=== PATIENT | male | born 1955 | race Caucasian/White ===

== ENCOUNTER → 2019-04-05 09:45 | Outpatient (CLI) | payer OTHER, SELFPAY ==
--- NOTE | 2019-04-05 | DI.MRI.S_ITS ---
PROCEDURE: MR CERVICAL SPINE WO CON INDICATIONS: RADICULAPATHY TECHNIQUE: Noncontrast sagittal T1 spin echo and T2 fast spin echo, sagittal STIR, foraminal oblique sagittal T2 fast spin echo, and axial gradient echo or T2 fast spin echo through the cervical spine. COMPARISON: None. FINDINGS: Image quality: Excellent. Alignment and Curvature: There is normal bony alignment. Bone Marrow: Marrow demonstrates normal overall signal. Mild reactive signal within the endplates adjacent to the C4-C5, C5-C6, and C6-C7 intervertebral discs are at Spinal Cord: Visualized spinal cord has normal size and signal. No cerebellar tonsillar herniation. Paraspinous Soft Tissues: No paravertebral masses. Prevertebral soft tissues are normal in thickness. C2-C3: Congenital canal stenosis. Moderate disc desiccation. Mild diffuse disc bulge. Mild canal stenosis. No foraminal stenosis. C3-C4: Congenital canal stenosis. Mild disc desiccation. Mild diffuse disc bulge. Mild facet and uncovertebral hypertrophy. Mild canal stenosis. Mild bilateral foraminal stenosis. C4-C5: Congenital canal stenosis. Moderate disc desiccation. Mild diffuse disc bulge. Mild facet and uncovertebral hypertrophy bilaterally. Moderate to severe canal stenosis. Mild cord flattening. Mild bilateral foraminal stenosis. C5-C6: Congenital canal stenosis. Moderate disc height loss and desiccation. Mild diffuse disc bulge. Mild facet and uncovertebral hypertrophy bilaterally. Moderate to severe canal stenosis. Minimal cord flattening. Mild left and moderate right foraminal stenosis. C6-C7: Mild disc height loss and desiccation. Mild diffuse disc bulge. Mild facet and uncovertebral hypertrophy bilaterally. Mild canal stenosis. Mild left and moderate right foraminal stenosis. C7-T1: Mild disc desiccation. No significant canal, nor foraminal stenosis. IMPRESSION: 1. Multilevel degenerative disc and facet disease, as well as uncovertebral hypertrophy superimposed on diffuse congenital canal stenosis. 2. Multilevel canal stenoses, worst at C4-C5 and C5-C6, where there is minimal cord flattening present. 3. Multilevel foraminal stenoses, worst at C5-C6 and C6-C7 on the right, where there are moderate foraminal stenosis present. Dictated by: Grayson Danielle M.D. on 04/06/2019 at 16:06 Approved by: Grayson Danielle M.D. on 04/06/2019 at 16:15
--- NOTE | 2019-04-05 | DI.MRI.S_ITS ---
PROCEDURE: MR SHOULDER RT WO CON INDICATIONS: RADICULAPATHY TECHNIQUE: Noncontrast oblique coronal T2 fast spin echo with fat saturation, oblique sagittal T1 spin echo and T2 fast spin echo with fat saturation, axial T1 spin echo and T2 fast spin echo with fat saturation through the shoulder. COMPARISON: None. FINDINGS: Image quality: Excellent. Rotator cuff: Severe supraspinatus tendinopathy and thickening with interstitial tearing, and possible full-thickness slitlike perforation seen on image 9/7. No retracted or large full thickness defect is identified. Concomitant partial-thickness articular and bursal side tear noted. Infraspinatus tendinopathy with low-grade bursal and articular surface fraying. Teres minor appears intact. Marked subscapularis thickening and tendinopathy, with interstitial tearing and articular and bursal surface fraying. No definite full-thickness defect is seen. No atrophy of the rotator cuff muscles. Bones and bursae: No bone marrow contusions or fractures. Severe hypertrophic acromioclavicular joint degeneration. Glenohumeral degeneration also noted. There is a joint effusion. Acromion demonstrates conventional anatomy, without an os acromiale. Moderate subacromial-subdeltoid bursitis. Capsule and soft tissues: Posterior labral tear is seen with small associated 1 mm para labral cyst on image 15 series 6. There is also circumferential blunting of the remaining labrum which is probably chronic/degenerative. Posterior subluxation of the humeral head relative to the glenoid in keeping with microinstability Long head of the biceps tendon intact. The rotator interval appears normal, without fibrosis. Coracohumeral ligament intact. IMPRESSION: Severe supraspinatus tendinopathy and thickening with interstitial tearing, and full-thickness slitlike pinpoint perforation however no retracted or large full thickness defect. Concomitant partial-thickness articular and bursal sided tear. Infraspinatus tendinopathy with low-grade bursal and articular surface fraying Marked subscapularis thickening and tendinopathy with interstitial tearing, low-grade articular and bursal surface fraying Joint effusion Moderate subacromial-subdeltoid bursitis Posterior labral tear, with associated posterior subluxation of the humeral head relative to the glenoid in keeping with microinstability Dictated by: Gorge Neumann M.D. on 04/06/2019 at 13:37 Approved by: Gorge Neumann M.D. on 04/06/2019 at 13:46
== END ==
PROVIDERS: PCP Family Medicine; Visit Provider Family Medicine
DX: M50.11 Cervical disc disorder with radiculopathy, high cervical region; M48.02 Spinal stenosis, cervical region; M75.111 Incomplete rotator cuff tear or rupture of right shoulder, not specified as traumatic; S43.491A Other sprain of right shoulder joint, initial encounter; M25.511 Pain in right shoulder; M19.011 Primary osteoarthritis, right shoulder; M25.411 Effusion, right shoulder; M75.51 Bursitis of right shoulder
CPT/HCPCS: 72141; 73221

== ENCOUNTER → 2022-03-20 14:10 | Outpatient (CLI) | payer MEDICARE, OTHER, SELFPAY ==
[2022-03-20 15:50] LABS: COVID19 -Nasal RAPID Negative (Negative)
== END ==
PROVIDERS: PCP Family Medicine; Visit Provider Surgery
DX: Z01.812 Encounter for preprocedural laboratory examination (principal); Z20.822 Contact with and (suspected) exposure to COVID-19
CPT/HCPCS: 87635; C9803

== ENCOUNTER 2022-03-21 11:52 | Day surgery (SDC) | payer MEDICARE, OTHER, SELFPAY ==
[2022-03-21 12:21] VITALS: BMI 27.6
[2022-03-21 12:27] VITALS: BP 107/75; PULSE 76; RESP 16; TEMP 36.9; O2SAT 98
[2022-03-21] MEDS: LACTATED RINGERS 1,000 ML 42 ML IV (12:33)
--- NOTE | 2022-03-21 12:43 | PM.HP.1 ---
History of Present Illness History of Present Illness Date Patient Seen: 03/21/22 Chief complaint: EGD W/POSS BX Narrative: Dysphagia and vomiting Patient History Family & Social History Social History: household members spouse Tobacco & Substance use: Smoking Status Never smoker alcohol intake never Substance Use Type does not use Meds Home Medications and Allergies Home Medications Medication Instructions Recorded Confirmed Type atorvastatin 80 mg tablet 20 mg PO DAILY 03/21/22 03/21/22 History empagliflozin 25 mg tablet PO DAILY 03/21/22 History (Jardiance) finasteride 5 mg tablet 5 mg PO DAILY 03/21/22 03/21/22 History gabapentin 600 mg tablet 600 mg PO DAILY 03/21/22 03/21/22 History insulin glargine 100 unit/mL (3 45 unit SUBCUT DAILY 03/21/22 03/21/22 History mL) subcutaneous pen (Lantus Solostar U-100 Insulin) lisinopril 10 mg tablet 5 mg PO DAILY 03/21/22 03/21/22 History metformin 500 mg tablet,extended 850 mg PO BID 03/21/22 03/21/22 History release 24 hr Allergies Allergy/AdvReac Type Severity Reaction Status Date / Time No Known Drug Allergies Allergy Verified 03/21/22 12:04 Exam Vital Signs (past 8 hours): - 03/21/22 12:27 Temperature 98.4 F Pulse Rate 76 Respiratory Rate 16 Blood Pressure 107/75 Pulse Oximetry 98 Oxygen Delivery Method Room Air Oxygen Delivery Method Room Air Narrative Exam Narrative: Oropharynx free of lesions Chest clear to auscultation percussion Cardiac exam reveals no S3 or murmur Assessment & Plan Assessment & Plan narrative: Nausea vomiting while eating at times with some degree of suprasternal notch dysphagia. Rule out mechanical lesion. Risks benefits alternatives been explained for EGD Time Spent With Patient Critical Care time: I spent a total of [] minutes of critical care time on this patient's care today; this time is exclusive of procedural time.
--- NOTE | 2022-03-21 12:45 | PM.OP.EGD ---
Operative Date/Time/Diagnoses Date of procedure: 03/21/22 Pre-op diagnosis: See indication and findings Procedure & Clinicians Study performed: EGD Indications: Nausea vomiting dysphagia Surgeon: Sin Gomez Procedure Notes Procedure in detail: After informed consent was obtained the patient was placed in left lateral decubitus position. The video upper endoscope was placed into the oropharynx and with the patient's help swelled into the esophagus. The esophagus stomach and duodenum were carefully examined. On withdrawal retroflexed view the GE junction was performed. The scope was removed. The patient tolerated procedure well Blood loss none Complications none Sedation mac Findings 1. Esophagus with no clear-cut peristalsis. Of interest is there were 3-4 erosions in the mid esophagus but none distally. GE junction had a wide open Schatzki's ring. 2. Stomach was otherwise normal 3. Normal duodenum bulb and sweep I would like to try to get Mr. Cid and esophageal manometry before any next steps. We will also try to get hold of his barium swallow from would be.
[2022-03-21 13:01] VITALS: BP 104/74; PULSE 85; RESP 14; TEMP 36.1; O2SAT 93
[2022-03-21 13:05] VITALS: BP 101/72; PULSE 83; RESP 11; O2SAT 91
[2022-03-21 13:10] VITALS: BP 105/73; PULSE 83; RESP 14; O2SAT 93
[2022-03-21 13:13] VITALS: BP 103/75; PULSE 84; RESP 14; TEMP 36.2; O2SAT 93
== END 2022-03-21 13:45 | disposition home or self-care (01) ==
PROVIDERS: PCP Family Medicine; Referring Provider Internal Medicine Gastroenterology; Visit Provider Internal Medicine Gastroenterology
PROC: 0DJ08ZZ Inspection of Upper Intestinal Tract, Via Natural or Artificial Opening Endoscopic (ICD-10-PCS; CPT 43235; principal; 2022-03-21 12:30)
DX: R13.10 Dysphagia, unspecified (principal); R11.2 Nausea with vomiting, unspecified; K22.2 Esophageal obstruction; K22.10 Ulcer of esophagus without bleeding
CPT/HCPCS: 43235; J2704

== ENCOUNTER → 2023-05-17 11:14 | Outpatient (CLI) | payer MEDICARE, OTHER, SELFPAY ==
--- NOTE | 2023-05-17 11:17 | DI.RAD.S_ITS ---
PROCEDURE: FL BARIUM SWALLOW INDICATIONS: DYSPHAGIA COMPARISON: None. FINDINGS: Function: There is delayed esophageal peristalsis, with stasis of contrast in the esophagus and tertiary contractions. Small volume elicited gastroesophageal reflux. Small hiatal hernia. IMPRESSION: Moderate to severe esophageal dysmotility for age. Small hiatal hernia with small volume gastroesophageal reflux. Dictated by: Austyn St M.D. on 05/17/2023 at 13:49 Approved by: Austyn St M.D. on 05/17/2023 at 13:49
== END ==
LOC: RAD 11:16
PROVIDERS: PCP Family Medicine; Referring Provider Internal Medicine Gastroenterology; Visit Provider Internal Medicine Gastroenterology
DX: K22.4 Dyskinesia of esophagus (principal); K21.9 Gastro-esophageal reflux disease without esophagitis; K44.9 Diaphragmatic hernia without obstruction or gangrene; R13.10 Dysphagia, unspecified
CPT/HCPCS: 74220

== ENCOUNTER → 2023-06-27 16:06 | Outpatient (CLI) | payer MEDICARE, OTHER, SELFPAY ==
--- NOTE | 2023-06-27 16:10 | DI.MRI.S_ITS ---
PROCEDURE: MR ANKLE RT WO CON INDICATIONS: Pain in right foot TECHNIQUE: Noncontrast sagittal T1 spin echo and T2 fast spin echo with fat saturation, axial proton density fast spin echo and T2 fast spin echo with fat saturation, coronal T1 spin echo and T2 fast spin echo with fat saturation through the ankle/hindfoot. COMPARISON: [facility] [place], CR, XR FOOT 3 VIEWS WEIGHT BEARING RIGHT, 06/19/2023, 9:54. FINDINGS: Tendons: The flexor tendons are unremarkable. Mild tenosynovitis of the peroneal tendon with longitudinal split tear of the peroneal brevis. The extensor tendons are unremarkable. Mild tendinosis of the distal Achilles tendon, without tear. Trace retrocalcaneal bursitis. Ligaments: The anterior and posterior tibiofibular ligament is intact. The anterior and posterior talofibular ligament are intact. The calcaneofibular ligament is intact. Mild sprain of the deep portion of the deltoid ligament. Sinus tarsi: No fibrosis. Plantar fascia: Thickening of the central cord , consistent with plantar fasciitis. Low-grade interstitial tear at the plantar insertion. Small plantar calcaneal enthesophyte with associated marrow edema, representing enthesitis. Muscles: Diffuse fatty atrophy. Bones: Nondisplaced fracture of the cuboid, with marked marrow edema. Moderate degenerate changes of the 4th and 5th tarsometatarsal joint with associated subchondral cystic changes. Mild degenerative changes of the 3rd tarsometatarsal joint with mild subchondral marrow edema. Other soft tissue findings: Diffuse subcutaneous edema of the ankle, extending into the dorsal midfoot. Small tibiotalar effusion. IMPRESSION: 1. Mild tenosynovitis of the peroneal tendons with longitudinal split tear of the peroneus brevis. 2. Plantar fasciitis with a low grade tear at the plantar insertion. Small plantar calcaneal enthesophyte with enthesitis. 3. Nondisplaced fracture of the cuboid with marked marrow edema. 4. Degenerative changes in the midfoot, most pronounced and moderate at the 4th and 5th tarsometatarsal joint. 5. Diffuse subcutaneous edema of the ankle. Dictated by: Judith Lieberman M.D. on 06/27/2023 at 17:49 Approved by: uJdith Lieberman M.D. on 06/27/2023 at 17:57
== END ==
LOC: MRI 16:08
PROVIDERS: PCP Family Medicine; Referring Provider Podiatrist; Visit Provider Podiatrist
DX: S92.214A Nondisplaced fracture of cuboid bone of right foot, initial encounter for closed fracture (principal); M65.871 Other synovitis and tenosynovitis, right ankle and foot; M79.671 Pain in right foot; M72.2 Plantar fascial fibromatosis; M77.31 Calcaneal spur, right foot; R60.0 Localized edema
CPT/HCPCS: 73721

== ENCOUNTER → 2023-10-02 15:26 | Outpatient (CLI) | payer MEDICARE, OTHER, SELFPAY ==
--- NOTE | 2023-10-02 15:28 | DI.MRI.S_ITS ---
PROCEDURE: MR ANKLE RT WO/W CON INDICATIONS: CLOSED NONDISPLACED FX OF CUBOID RT FOOT TECHNIQUE: Noncontrast sagittal T1 spin echo and T2 fast spin echo with fat saturation, axial proton density fast spin echo and T2 fast spin echo with fat saturation, axial T1 spin echo with fat saturation, coronal T1 spin echo and T2 fast spin echo with fat saturation through the ankle/hindfoot. Post-contrast axial, coronal, and sagittal T1 spin echo with fat saturation through the ankle/hindfoot. COMPARISON: [facility], MR, MR ANKLE RT WO CON, 06/27/2023, 16:42. [facility] [place], CR, XR FOOT 3 VIEWS WEIGHT BEARING RIGHT, 06/19/2023, 9:54. FINDINGS: Image quality: Excellent. Bones and joints: Oblique fracture again seen involving the cuboid. There is mild separation of fracture fragments measuring approximately 2 mm is that has increased when compared to the prior MRI. No osseous bridging is seen. There is surrounding osseous edema throughout the cuboid. Mild edema is also seen in the anterior portion of the calcaneus and the adjacent lateral navicular. Degenerative changes are again seen at the 4th and 5th tarsometatarsal joints with subchondral cystic changes. Mild degenerative spurring at the talonavicular joint. No osteochondral injuries of the talar dome. Medial structures: The deltoid ligament and the spring ligament complex are intact. Mild posterior tibialis tenosynovitis. The flexor digitorum longus and flexor hallucis longus tendons are intact. The posterior tibial neurovascular bundle appears normal within the tarsal tunnel, without extrinsic mass effect. Lateral structures: The anterior talofibular, calcaneofibular, and posterior talofibular ligaments are intact. The anterior and posterior tibiofibular ligaments are intact. Longitudinal split tearing in seen involving the peroneus brevis tendon at the level of the distal fibula with distal reconstitution at the level of the peroneal tubercle. There is low-grade partial intrasubstance tearing of the peroneus longus tendon adjacent to the cuboid. Moderate peroneus brevis and longus tenosynovitis. There is partial effacement of the normal fat signal in the sinus tarsi. Anterior structures: The tibialis anterior, extensor hallucis longus, and extensor digitorum longus tendons appear intact. Posterior and plantar structures: Achilles tendon is intact. Thickening of the proximal plantar fascia is seen with focal fluid signal at the origin of the central band and mild surrounding soft tissue edema. Small mildly edematous plantar calcaneal enthesophyte. There is mild generalized fatty infiltration of the foot musculature consistent with chronic denervation changes. IMPRESSION: 1. Oblique fracture of the cuboid is again seen with minimal displacement of osseous fragments that is new when compared to the prior MRI from 06/27/2023. There is surrounding osseous edema. No significant osseous bridging is seen. 2. Longitudinal split tearing of the peroneus brevis tendon at the level of the distal fibula with tendon reconstitution at the level of the peroneal tubercle. 3. Low-grade partial tearing of the peroneus longus tendon adjacent to the cuboid. Moderate peroneus brevis and longus tenosynovitis. 4. Focal partial tearing of the plantar fascia again seen at the origin superimposed on moderate chronic fasciitis. 5. Mild distal posterior tibialis tenosynovitis. Approved by: Chema Leon M.D. on 10/03/2023 at 12:54
== END ==
PROVIDERS: PCP Family Medicine; Referring Provider Podiatrist; Visit Provider Podiatrist
DX: S92.214 Nondisplaced fracture of cuboid bone of right foot (principal); S96.811A Strain of other specified muscles and tendons at ankle and foot level, right foot, initial encounter; M25.474 Effusion, right foot; M65.871 Other synovitis and tenosynovitis, right ankle and foot; M72.2 Plantar fascial fibromatosis
CPT/HCPCS: 73723; A9579

== ENCOUNTER 2025-02-13 20:14 | Emergency (ER) | payer MEDICARE, OTHER, SELFPAY ==
[2025-02-13 20:29] VITALS: BP 108/75; PULSE 78; RESP 16; TEMP 36.6; O2SAT 94; BMI 26.9
[2025-02-13 21:33] VITALS: BP 121/69; PULSE 81; RESP 18; O2SAT 96
--- NOTE | 2025-02-13 22:15 | DI.RAD.S_ITS ---
PROCEDURE: XR HIP W PEL IF DONE LT 2V INDICATIONS: left hip pain TECHNIQUE: AP pelvis with lateral view(s) of the left hip(s). COMPARISON: None. FINDINGS: Bones: No fractures or dislocations. Pelvic ring appears intact. No suspicious bony lesions. Mild degenerative changes of the hip joints. Soft tissues: The visualized bowel gas pattern is normal. No suspicious soft tissue calcifications. IMPRESSION: No acute bony abnormality. If there is high clinical suspicion for fracture, including inability to bear weight, further evaluation with cross-sectional imaging would be recommended. Dictated by: Leonardo Covarrubias M.D. on 02/13/2025 at 22:54 Approved by: Leonardo Covarrubias M.D. on 02/13/2025 at 22:56
--- NOTE | 2025-02-13 22:17 | ED.BACK ---
HPI - Back Pain/Injury General Chief Complaint: Back Pain/Injury Stated Complaint: Fall / Lt hip px Time Seen by Provider: 02/13/25 21:07 Source: patient History of Present Illness HPI Narrative: 69-year-old male with a history of diabetes presents with some left sided hip pain after stumbling a few hours ago. The patient was pushing back behind the table and stumbled a bit but did not fall. He has also been having some left-sided groin area pain in the past few days. He denies any other symptoms. Related Data Home Medications ?Medication ?Instructions ?Recorded ?Confirmed atorvastatin 80 mg tablet 20 mg PO DAILY 03/21/22 03/21/22 empagliflozin 25 mg tablet PO DAILY 03/21/22 (Jardiance) finasteride 5 mg tablet 5 mg PO DAILY 03/21/22 03/21/22 gabapentin 600 mg tablet 600 mg PO DAILY 03/21/22 03/21/22 insulin glargine 100 unit/mL (3 45 unit SUBCUT DAILY 03/21/22 03/21/22 mL) subcutaneous pen (Lantus Solostar U-100 Insulin) lisinopril 10 mg tablet 5 mg PO DAILY 03/21/22 03/21/22 metformin 500 mg tablet,extended 850 mg PO BID 03/21/22 03/21/22 release 24 hr Allergies Allergy/AdvReac Type Severity Reaction Status Date / Time No Known Drug Allergies Allergy Verified 02/13/25 20:29 Review of Systems Review of Systems ROS Unobtainable: All systems reviewed & are unremarkable except as noted in HPI and below Patient History Social History household members: spouse Smoking Status: Never smoker alcohol intake: never Smoking Status: Never smoker Exam Narrative Exam Narrative: General: Patient appears to be in no acute distress, acting appropriately Head: normocephalic, atraumatic, HEENT: Pupils equal round reactive, eyes tracking well, neck supple, no JVD Heart: regular rate and rhythm, no murmurs, rubs, or gallops heard Lungs: clear to auscultation, no adventitious sounds Abdomen: soft , nontender, nondistended, positive bowel sounds Neurological: no focal neurological signs, moving all extremities well, alert and oriented x3, Psych: good judgment ,good insight, mood is normal. left hip : pain with palpation in left hip area, good rom Initial Vital Signs Initial Vital Signs: Vital Signs Temperature 97.8 F 02/13/25 20:29 Pulse Rate 78 02/13/25 20:29 Respiratory Rate 16 02/13/25 20:29 Blood Pressure 108/75 02/13/25 20:29 Pulse Oximetry 94 02/13/25 20:29 Oxygen Delivery Method Room Air 02/13/25 20:29 Course Orders Ordered: ED Orders 02/13/25 22:15 XR hip w pel LT 2V Stat Vital Signs Vital signs: Vital Signs - 8 hr 02/13/25 23:05 Pulse Rate 87 Respiratory Rate 18 Blood Pressure 111/73 Pulse Oximetry 98 Oxygen Delivery Method Room Air MDM - Back Pain/Injury Imaging Data left hip xray : Radiologist's Impression: No acute bony abnormality. If there is high clinical suspicion for fracture, including inability to bear weight, further evaluation with cross-sectional imaging would be recommended. [facility] Narrative Medical decision making narrative: 69-year-old male with some left-sided hip pain after stumbling backwards a bit but did not fall. His left hip x-ray was unremarkable. His pain did improve some during his course here in the ED. advised to follow up for worsening symptoms. Discharge Plan Departure Patient Disposition: Home Clinical Impression: Strain of left hip Qualifiers: Encounter type: initial encounter Qualified Code(s): S76.012A - Strain of muscle, fascia and tendon of left hip, initial encounter Instructions: DI for Hip Pain Activity Restrictions/Additional Instructions: Come back for worsening pain. Use anti-inflammatory meds as needed. Prescriptions: No Action atorvastatin 80 mg tablet 20 mg PO DAILY gabapentin 600 mg tablet 600 mg PO DAILY lisinopril 10 mg tablet 5 mg PO DAILY metformin 500 mg tablet extended release 24 hr 850 mg PO BID finasteride 5 mg tablet 5 mg PO DAILY insulin glargine [Lantus Solostar U-100 Insulin] 100 unit/mL (3 mL) insulin pen 45 unit SUBCUT DAILY Jardiance 25 mg tablet PO DAILY Rx Instructions: unsure of dose states 1/2 tab daily Referrals: Merrill Valdes DO [Primary Care Provider, Family Practice] Stand Alone Forms: Patient Portal/API
[2025-02-13 23:05] VITALS: BP 111/73; PULSE 87; RESP 18; O2SAT 98
== END 2025-02-13 23:05 | disposition home or self-care (01) ==
PROVIDERS: Emergency Provider Family Medicine; PCP Family Medicine
DX: S76.012A Strain of muscle, fascia and tendon of left hip, initial encounter (principal); W18.40XA Slipping, tripping and stumbling without falling, unspecified, initial encounter
CPT/HCPCS: 73502; 99281; 99283